=== PATIENT | female | born 1940 | race Caucasian/White ===

== ENCOUNTER 2017-08-16 17:08 | Emergency (ER) | payer MEDICARE, BC ==
[2017-08-16 18:32] VITALS: BP 142/69
[2017-08-16] MEDS ORDERED: Lidocaine 1% 30 ML SDV INJECT ONE (19:21)
[2017-08-16] MEDS ORDERED: Bacitracin Oint 1 GM U/D Packet TOP ONE (19:21)
--- NOTE | 2017-08-16 19:21 | EDM.PDOC ---
ED HPI GENERAL MEDICAL PROBLEM - General Chief Complaint: Laceration Stated Complaint: [id number] FELL Time Seen by Provider: 08/16/17 19:17 Source of Information: Reports: Patient History Limitations: Reports: No Limitations - History of Present Illness INITIAL COMMENTS - FREE TEXT/NARRATIVE: Tripped fell struck right hand on rail, 2cm laceration over knuckle on hand. Reports tetnus status as current. Denies other injury Onset: Today Right Hand Pain Score (Numeric/FACES): 4 - Related Data Allergies Allergy/AdvReac Type Severity Reaction Status Date / Time atorvastatin calcium Allergy Muscle Verified 07/19/15 13:59 [From Lipitor] Aches codeine Allergy Nausea and Verified 07/19/15 13:59 Vomiting paroxetine HCl [From Paxil] Allergy Cannot Verified 07/19/15 13:59 Remember Penicillins Allergy Shortness Verified 07/19/15 13:59 of Breath rosuvastatin calcium Allergy Muscle Verified 07/19/15 13:59 [From Crestor] Aches simvastatin [From Zocor] Allergy Muscle Verified 07/19/15 13:59 Aches Home Meds: Home Meds Acetaminophen [Tylenol Extra Strength] 500 mg PO Q6HR PRN 07/18/15 [History] Aspirin [Ecotrin] 81 mg PO DAILY 07/18/15 [History] Calcium Carbonate/Vitamin D3 [Calcium 600 + Vit D 400 Tablet] 1 tab PO DAILY [History] Cholecalciferol (Vitamin D3) [Vitamin D] 2,000 unit PO DAILY 07/18/15 [History] Clotrimazole/Betamethasone Dip [Lotrisone Cream] 1 squirt TOP ASDIRECTED [History] Docusate Sodium [Colace] 100 mg PO DAILY 07/18/15 [History] Lisinopril/Hydrochlorothiazide [Lisinopril-Hctz 10-12.5 mg Tab] 1 tab PO DAILY 07/18/15 [History] Multivitamin W-Minerals/Lutein [Vision Plus Lutein Vitamin] 1 tab PO DAILY 07/17 [History] Pravastatin Sodium [Pravastatin (Pravachol)] 1 tab PO BEDTIME 07/18/15 [History] Past Medical History HEENT History: Reports: Impaired Vision Cardiovascular History: Reports: High Cholesterol, Hypertension Respiratory History: Reports: None Gastrointestinal History: Reports: Diverticulosis, Hemorrhoids Genitourinary History: Reports: Other (See Below) Other Genitourinary History: Nephrolithiasis [employer] SURVEYOR History: Reports: Other (See Below) Other OB/BYN History: Vaginitis Musculoskeletal History: Reports: None Neurological History: Reports: None Psychiatric History: Reports: None Endocrine/Metabolic History: Reports: Obesity/BMI 30+, Other (See Below) Other Endocrine/Metabolic History: elevated fasting glucose Hematologic History: Reports: None Immunologic History: Reports: None Oncologic (Cancer) History: Reports: None Dermatologic History: Reports: None - Infectious Disease History Infectious Disease History: Reports: Chicken Pox, Measles, Mumps, Rheumatic Fever - Past Surgical History Head Surgeries/Procedures: Reports: None Respiratory Surgical History: Reports: None GI Surgical History: Reports: Cholecystectomy, Colonoscopy Female Surgical History: Reports: Breast Biopsy Neurological Surgical History: Reports: None Musculoskeletal Surgical History: Reports: None Oncologic Surgical History: Reports: Biopsy of Breast Dermatological Surgical History: Reports: None Social & Family History - Tobacco Use Smoking Status *Q: Never Smoker - Caffeine Use Caffeine Use: Reports: Coffee, Soda - Recreational Drug Use Recreational Drug Use: No ED ROS GENERAL - Review of Systems Review Of Systems: ROS reveals no pertinent complaints other than HPI. ED EXAM, SKIN/RASH Exam: See Below Exam Limited By: No Limitations Ears: Normal External Exam Nose: Normal Inspection Throat/Mouth: Normal Voice Head: Atraumatic, Normocephalic Neck: Normal Inspection, Non-Tender Respiratory/Chest: No Respiratory Distress, Lungs Clear Cardiovascular: Normal Peripheral Pulses Neurological: Alert, Normal Cognition Skin: Wound/Incision (Laceration right hand CMS intact) Location, Skin: Upper Extremity, Right (2cm laceration right distal 2nd MCP) ED SKIN PROCEDURES - Laceration/Wound Repair Right Hand Lac/Wound length In cm: 2 Appearance: Superficial Distal NVT: Neuro & Vascular Intact, No Tendon Injury Anesthetic Type: Local Local Anesthesia - Lidocaine (Xylocaine): 1% Plain Local Anesthetic Volume: 1cc Skin Prep: Chlorhexidine (Hibiciens), Saline Exploration/Debridement/Repair: Wound Explored Closed with: Sutures Suture Size: other (5-0) # of Sutures: 3 Suture Type: Nylon, Interrupted Sterile Dressing Applied: Nurse Tetanus Status Addressed: Yes Complications: No Course - Vital Signs Last Recorded V/S: Last Vital Signs Temp 99.2 F 08/16/17 18:31 Pulse 75 08/16/17 18:31 Resp 16 08/16/17 18:31 BP 142/69 H 08/16/17 18:31 Pulse Ox 98 08/16/17 18:31 - Orders/Labs/Meds Meds: Medications Discontinued Medications Generic Name Dose Route Start Last Admin Trade Name Jessa PRN Reason Stop Dose Admin Bacitracin 1 dose 08/16/17 19:21 08/16/17 19:26 Bacitracin Oint 1 Gm TOP 08/16/17 19:22 1 dose ONETIME ONE Administration Lidocaine HCl 30 ml 08/16/17 19:21 08/16/17 19:26 Xylocaine-Mpf 1% INJECT 08/16/17 19:22 30 ml ONETIME ONE Administration Departure - Departure Time of Disposition: 19:39 Disposition: Home, Self-Care 01 Condition: Good Clinical Impression: Laceration of right hand Qualifiers: Encounter type: initial encounter Foreign body presence: without foreign body Qualified Code(s): S61.411A - Laceration without foreign body of right hand, initial encounter - Discharge Information Instructions: Laceration Care, Adult, [id number] Referrals: Vesta Cespedes PA [Primary Care Provider] - Forms: ED Department Discharge Additional Instructions: keep clean ad dry, may change dressing in 24 hours then cleanse twice daily with soap and water keep covered while working sutures out in 10 days follow up if redness swelling or drainage.
== END 2017-08-16 19:52 | disposition home or self-care (01) ==
LOC: DL.ED 17:08
DX: S61.411A Laceration without foreign body of right hand, initial encounter (principal); I10 Essential (primary) hypertension; E78.00 Pure hypercholesterolemia, unspecified; Z79.82 Long term (current) use of aspirin; Z79.899 Other long term (current) drug therapy; Z88.8 Allergy status to other drugs, medicaments and biological substances; Z88.5 Allergy status to narcotic agent; Z88.0 Allergy status to penicillin; W01.198A Fall on same level from slipping, tripping and stumbling with subsequent striking against other object, initial encounter
CPT/HCPCS: 12001; 12011; 99282; 99283

== ENCOUNTER 2021-06-09 09:47 | Inpatient (IN) | payer MEDICARE, BC ==
[~2021-06-09 09:47] MED LIST: Tamsulosin 0.4 MG Cap.ER PO SCH
[2021-06-09] MEDS ORDERED: Ondansetron 4 MG Tab.DIS PO ONE (10:37)
[2021-06-09] MEDS ORDERED: Morphine 2 MG/ML SYRINGE IVPUSH ONE ×2 (10:51→12:19)
[2021-06-09 11:34] LABS: ANION GAP 21.1 mEq/L (7-13)
[2021-06-09] MEDS ORDERED: Sodium Chloride 0.9% 1,000 ML IV SCH (11:45)
[2021-06-09] MEDS ORDERED: Polyethylene Glycol 3350 Powder 17 GM Packet PO PRN (13:45)
[2021-06-09] MEDS ORDERED: Albuterol/Ipratropium 3.0-0.5 MG/3 ML Neb Soln NEB PRN (13:45)
[2021-06-09] MEDS ORDERED: Acetaminophen/HYDROcodone 325-10 MG Tab PO PRN (13:45)
[2021-06-09] MEDS ORDERED: HYDROmorphone 0.5 MG/0.5 ML Syringe IVPUSH PRN (13:45)
[2021-06-09] MEDS ORDERED: Acetaminophen 325 MG Tab PO PRN (13:45)
[2021-06-09] MEDS ORDERED: cefTRIAXone 2 GM in Sodium Chloride 0.9% 100 ML IV ONE (13:50)
[2021-06-09] MEDS ORDERED: Phenazopyridine 95 MG Tab PO ONE (13:51)
[2021-06-09] MEDS ORDERED: Tamsulosin 0.4 MG Cap.ER PO ONE (13:52)
[2021-06-09] MEDS ORDERED: hydrALAZINE 20 MG/ML SDV IVPUSH PRN (13:54)
[2021-06-09] MEDS: Sodium Chloride 0.9% 1,000 ML IV SCH ×2 (14:23→22:33)
[2021-06-09] MEDS: Ondansetron 4 MG Tab.DIS PO PRN (14:25)
[2021-06-09] MEDS: Phenazopyridine 95 MG Tab PO SCH (20:35)
[2021-06-10] MEDS: Sodium Chloride 0.9% 1,000 ML IV SCH ×2 (06:36→15:59)
[2021-06-10 07:02] LABS: ANION GAP 17.6 mEq/L (7-13)
[2021-06-10] MEDS: Tamsulosin 0.4 MG Cap.ER PO SCH ×2 (08:04→17:36)
[2021-06-10] MEDS: Phenazopyridine 95 MG Tab PO SCH ×2 (08:04→21:07)
[2021-06-10] MEDS ORDERED: Sodium Chloride 0.9% 50 ML ONE (08:07)
[2021-06-10] MEDS ORDERED: cefTRIAXone 1 GM Vial ONE (08:07)
[2021-06-10] MEDS ORDERED: cefTRIAXone 1 GM in Sodium Chloride 0.9% 50 ML IV SCH (09:00)
[2021-06-10] MEDS ORDERED: Magnesium Sulfate/Water 2 GM in Premix Bag 1 BAG IV ONE (10:00)
[2021-06-10] MEDS ORDERED: Betamethasone Dipropionate/Clotrimazole 0.05-1% Crm 15 GM Tube TOP PRN (10:43)
[2021-06-10] MEDS ORDERED: Acetaminophen 500 MG Tab PO PRN (10:43)
[2021-06-10] MEDS: Aspirin 81 MG Tab.EC PO SCH (11:29)
[2021-06-10] MEDS: Ondansetron 4 MG Tab.DIS PO PRN (21:07)
[2021-06-11] MEDS: Sodium Chloride 0.9% 1,000 ML IV SCH ×2 (00:16→08:17)
[2021-06-11] MEDS: Ondansetron 4 MG Tab.DIS PO PRN (02:36)
[2021-06-11 06:45] LABS: ANION GAP 15.5 mEq/L (7-13)
[2021-06-11] MEDS ORDERED: cefTRIAXone 1 GM in Sodium Chloride 0.9% 100 ML IV SCH (09:00)
[2021-06-11] MEDS ORDERED: Sodium Chloride 0.9% 1,000 ML IV SCH (09:00)
[2021-06-11] MEDS: Phenazopyridine 95 MG Tab PO SCH ×2 (09:46→20:37)
[2021-06-11] MEDS: Lutein/Minerals/Vit A,C & E Tab PO SCH (09:46)
[2021-06-11] MEDS: Docusate Sodium 100 MG Cap PO SCH (09:46)
[2021-06-11] MEDS: Tamsulosin 0.4 MG Cap.ER PO SCH ×2 (09:46→18:14)
[2021-06-11] MEDS ORDERED: Scopolamine 1.5 MG Transdermal Patch TRDERM ONE (10:00)
[2021-06-11] MEDS ORDERED: Iopamidol 612 MG/ML 100 ML Bottle IVPUSH ONE (11:42)
[2021-06-11] MEDS: Meropenem 1 GM in Sodium Chloride 0.9% 100 ML IV SCH (18:15)
[2021-06-12 07:05] LABS: ANION GAP 15.1 mEq/L (7-13)
[2021-06-12] MEDS: Tamsulosin 0.4 MG Cap.ER PO SCH (08:14)
[2021-06-12] MEDS: Phenazopyridine 95 MG Tab PO SCH (08:14)
[2021-06-12] MEDS: Lutein/Minerals/Vit A,C & E Tab PO SCH (08:14)
[2021-06-12] MEDS: Docusate Sodium 100 MG Cap PO SCH (08:14)
[2021-06-12] MEDS: Aspirin 81 MG Tab.EC PO SCH (08:14)
[2021-06-12] MEDS: Meropenem 1 GM in Sodium Chloride 0.9% 100 ML IV SCH (10:00)
[2021-06-12] MEDS ORDERED: Potassium Chloride 10 MEQ Tab.ER PO ONE (11:41)
[2021-06-12 11:55] VITALS: BP 153/70; PULSE 66
== END 2021-06-12 13:00 | disposition home or self-care (01) | DRG 690 ==
LOC: DL.ED 09:47 → DL.MS 13:22 → OBSVTOIN 15:44
PROVIDERS: ADMIT Internal Medicine; ATTEND Internal Medicine
DX: N13.6 Pyonephrosis (principal); N30.00 Acute cystitis without hematuria; N17.9 Acute kidney failure, unspecified; I10 Essential (primary) hypertension; E83.52 Hypercalcemia; T50.905A Adverse effect of unspecified drugs, medicaments and biological substances, initial encounter; N20.0 Calculus of kidney; B96.20 Unspecified Escherichia coli [E. coli] as the cause of diseases classified elsewhere; Z66 Do not resuscitate; R73.9 Hyperglycemia, unspecified; E78.5 Hyperlipidemia, unspecified; K57.90 Diverticulosis of intestine, part unspecified, without perforation or abscess without bleeding; N13.2 Hydronephrosis with renal and ureteral calculous obstruction; L90.0 Lichen sclerosus et atrophicus; N13.4 Hydroureter; N20.9 Urinary calculus, unspecified; H54.7 Unspecified visual loss; E78.00 Pure hypercholesterolemia, unspecified; E66.9 Obesity, unspecified; Z96.652 Presence of left artificial knee joint; N13.9 Obstructive and reflux uropathy, unspecified; N60.19 Diffuse cystic mastopathy of unspecified breast; E83.42 Hypomagnesemia; Z88.5 Allergy status to narcotic agent; Z87.442 Personal history of urinary calculi; Z79.82 Long term (current) use of aspirin; Z79.899 Other long term (current) drug therapy; Z88.8 Allergy status to other drugs, medicaments and biological substances; Z88.0 Allergy status to penicillin; Z86.19 Personal history of other infectious and parasitic diseases; Z90.49 Acquired absence of other specified parts of digestive tract
CPT/HCPCS: 36415; 74176; 80053; 81001; 83690; 85025; 87086; 87088; 87186; 96374; 96376; 99285; A9270 ×4; J0696; J2270 ×2; J7030 ×2; 71045; 74177; 80048; 83735; 85651; 86140; 96365; 96366; 96375; 97116-GP; 97161-GP; 97165-GO; G0378; J2185; J3475; Q9967

== ENCOUNTER 2022-05-21 06:37 | Day surgery (SDC) | payer MEDICARE, BC ==
[~2022-05-21 06:37] MED LIST changes: +Acetaminophen 325 MG Tab PO PRN; +Acetaminophen/Codeine 300-30 MG Tab PO PRN; +Cataract Ophth Solution EYELF ONE; +Moxifloxacin 0.5% Ophth Soln 3 ML Bottle EYELF ONE; +Ondansetron 4 MG/2 ML SDV IVPUSH PRN; +Phenylephrine 10% Ophth Soln 5 ML Bot EYELF PRN; +Povidone-Iodine 5% Sterile Ophth Soln 30 ML Bottle EYELF ONE; +Proparacaine 0.5% Ophth Soln 15 ML Bottle EYELF ONE; +Sodium Chloride 0.9% 10 ML Syringe FLUSH PRN; -Tamsulosin 0.4 MG Cap.ER PO SCH; +Timolol Maleate 0.5% Ophth Soln 5 ML Bottle EYELF ONE; +Tropicamide 1% Ophth Soln 15 ML Bottle EYELF ONE
[2022-05-21] MEDS ORDERED: Dexamethasone 4 MG/ML SDV IV ONE (06:38)
[2022-05-21] MEDS ORDERED: Sodium Chloride 0.9% 10 ML Syringe IV ONE (06:38)
[2022-05-21] MEDS ORDERED: Midazolam 1 MG/ML 2 ML SDV IV ONE (06:38)
[2022-05-21] MEDS ORDERED: Proparacaine 0.5% Ophth Soln 15 ML Bottle EYELF ONE ×2 (06:39→08:06)
[2022-05-21] MEDS ORDERED: Povidone-Iodine 5% Sterile Ophth Soln 30 ML Bottle EYELF ONE ×2 (06:41→08:06)
[2022-05-21] MEDS ORDERED: Apraclonidine 0.5% Ophth Soln 5 ML Bot EYELF ONE ×2 (06:42→08:13)
[2022-05-21] MEDS ORDERED: Diclofenac Sodium 0.1% Ophth Soln 5 ML Bottle EYELF ONE ×2 (06:43→08:13)
[2022-05-21] MEDS ORDERED: Dexamethasone/Neomycin/Polymyxin B Ophth Oint 3.5 GM Tube EYELF ONE ×2 (06:44→08:13)
[2022-05-21] MEDS ORDERED: Lidocaine 1% 30 ML SDV ONE ×2 (06:45→08:14)
[2022-05-21] MEDS ORDERED: Balanced Salt Solution Ophth Irrig 500 ML Bottle IOCULAR ONE ×2 (06:46→08:14)
[2022-05-21] MEDS ORDERED: Chondroitin Sulfate/Hyaluronate Sodium Ophth Inj 0.75 ML Syringe EYELF ONE ×2 (06:47→08:15)
[2022-05-21] MEDS ORDERED: Vancomycin 500 MG SDV EYELF ONE ×2 (06:47→08:14)
[2022-05-21 09:45] VITALS: BP 142/61; PULSE 70
== END 2022-05-21 09:35 | disposition home or self-care (01) ==
LOC: DL.SDS 06:37
PROVIDERS: ATTEND Ophthalmology
DX: H25.812 Combined forms of age-related cataract, left eye (principal); I10 Essential (primary) hypertension; R73.02 Impaired glucose tolerance (oral); E66.9 Obesity, unspecified; E78.2 Mixed hyperlipidemia; Z98.890 Other specified postprocedural states; Z79.899 Other long term (current) drug therapy; Z88.0 Allergy status to penicillin; Z88.8 Allergy status to other drugs, medicaments and biological substances; Z88.1 Allergy status to other antibiotic agents; Z88.5 Allergy status to narcotic agent; Z68.26 Body mass index [BMI] 26.0-26.9, adult
CPT/HCPCS: 00142; A9270-GY; J1100; J2250; J3370; J3490; V2632

== ENCOUNTER 2022-06-04 06:30 | Day surgery (SDC) | payer MEDICARE, BC ==
[~2022-06-04 06:30] MED LIST changes: -Cataract Ophth Solution EYELF ONE; +Cataract Ophth Solution EYERT ONE; -Moxifloxacin 0.5% Ophth Soln 3 ML Bottle EYELF ONE; +Moxifloxacin 0.5% Ophth Soln 3 ML Bottle EYERT ONE; -Phenylephrine 10% Ophth Soln 5 ML Bot EYELF PRN; +Phenylephrine 10% Ophth Soln 5 ML Bot EYERT PRN; -Povidone-Iodine 5% Sterile Ophth Soln 30 ML Bottle EYELF ONE; +Povidone-Iodine 5% Sterile Ophth Soln 30 ML Bottle EYERT ONE; -Proparacaine 0.5% Ophth Soln 15 ML Bottle EYELF ONE; +Proparacaine 0.5% Ophth Soln 15 ML Bottle EYERT ONE; +Proparacaine 0.5% Ophth Soln 15 ML Bottle ONE; -Timolol Maleate 0.5% Ophth Soln 5 ML Bottle EYELF ONE; +Timolol Maleate 0.5% Ophth Soln 5 ML Bottle EYERT ONE; -Tropicamide 1% Ophth Soln 15 ML Bottle EYELF ONE; +Tropicamide 1% Ophth Soln 15 ML Bottle EYERT ONE
[2022-06-04] MEDS ORDERED: Sodium Chloride 0.9% 10 ML Syringe IVPUSH ONE (06:31)
[2022-06-04] MEDS ORDERED: Dexamethasone 4 MG/ML SDV IVPUSH ONE (06:31)
[2022-06-04] MEDS ORDERED: Midazolam 1 MG/ML 2 ML SDV IVPUSH ONE (06:31)
[2022-06-04] MEDS ORDERED: Apraclonidine 0.5% Ophth Soln 5 ML Bot EYERT ONE (07:53)
[2022-06-04] MEDS ORDERED: Povidone-Iodine 5% Sterile Ophth Soln 30 ML Bottle EYERT ONE (07:53)
[2022-06-04] MEDS ORDERED: Proparacaine 0.5% Ophth Soln 15 ML Bottle EYERT ONE (07:53)
[2022-06-04] MEDS ORDERED: Diclofenac Sodium 0.1% Ophth Soln 5 ML Bottle EYERT ONE (07:54)
[2022-06-04] MEDS ORDERED: Lidocaine 1% 30 ML SDV ONE (07:54)
[2022-06-04] MEDS ORDERED: Dexamethasone/Neomycin/Polymyxin B Ophth Oint 3.5 GM Tube EYERT ONE (07:54)
[2022-06-04] MEDS ORDERED: Vancomycin 500 MG SDV EYERT ONE (07:55)
[2022-06-04] MEDS ORDERED: Balanced Salt Solution Ophth Irrig 500 ML Bottle IOCULAR ONE (07:55)
[2022-06-04] MEDS ORDERED: Chondroitin Sulfate/Hyaluronate Sodium Ophth Inj 0.75 ML Syringe EYERT ONE (07:55)
[2022-06-04] MEDS ORDERED: Dexamethasone 4 MG/ML SDV ONE (07:57)
[2022-06-04 09:04] VITALS: PULSE 63
[2022-06-04 09:05] VITALS: BP 101/66
== END 2022-06-04 09:25 | disposition home or self-care (01) ==
LOC: DL.SDS 06:30
PROVIDERS: ATTEND Ophthalmology
DX: H25.811 Combined forms of age-related cataract, right eye (principal); E78.2 Mixed hyperlipidemia; I12.9 Hypertensive chronic kidney disease with stage 1 through stage 4 chronic kidney disease, or unspecified chronic kidney disease; N18.30 Chronic kidney disease, stage 3 unspecified; R73.01 Impaired fasting glucose; E66.9 Obesity, unspecified; Z79.899 Other long term (current) drug therapy; Z68.26 Body mass index [BMI] 26.0-26.9, adult; Z88.8 Allergy status to other drugs, medicaments and biological substances; Z88.0 Allergy status to penicillin
CPT/HCPCS: 00142; A9270-GY; J1100; J2250; J3370; J3490; V2632